=== PATIENT | female | born 1970 | race Caucasian/White ===

== ENCOUNTER 2025-04-07 06:25 | Day surgery (SDC) | payer OTHER, SELFPAY ==
[2025-04-07 13:15] LABS: Glucose - Point of Care 89 mg/dl (70-99)
== END 2025-04-07 14:44 | disposition home or self-care (01) ==
LOC: GI 06:25
PROVIDERS: ATTENDING PHYSICIAN Specialist
DX: Z12.11 Encounter for screening for malignant neoplasm of colon (principal); K59.00 Constipation, unspecified; K62.5 Hemorrhage of anus and rectum; Z83.719 Family history of colon polyps, unspecified
CPT/HCPCS: G0105; 82962